=== PATIENT | female | born 1965 | race Caucasian/White ===

== ENCOUNTER 2020-01-05 15:42 | Emergency (ER) | payer BC ==
[~2020-01-05] VITALS: Ht 160 cm; Wt 79.1 kg
[2020-01-05 15:51] VITALS: Ht 160 cm; Wt 79.1 kg
[2020-01-05] MEDS ORDERED: CYMBALTA60 MG PO (15:54)
[2020-01-05] MEDS ORDERED: CYCLOBENZAPRINE10 MG PO (18:01)
[2020-01-05] MEDS ORDERED: STADOL NASAL S2.5 ML NASAL (18:01)
[2020-01-05 18:45] VITALS: BP 112/70
== END 2020-01-05 18:48 | disposition home or self-care (01) ==
LOC: D.ER 15:42
DX: S00.03XA Contusion of scalp, initial encounter (principal); W22.8XXA Striking against or struck by other objects, initial encounter; Y93.9 Activity, unspecified; Y92.9 Unspecified place or not applicable; S16.1XXA Strain of muscle, fascia and tendon at neck level, initial encounter; G43.909 Migraine, unspecified, not intractable, without status migrainosus